=== PATIENT | male | born 1950 | race Asian ===

== ENCOUNTER 2022-01-11 20:01 | Emergency (ER) | payer OTHER ==
[~2022-01-11] VITALS: Ht 180.3 cm; Wt 83.5 kg
[2022-01-11 21:02] LABS: PLATELET COUNT 119 K/uL (142-355)
[2022-01-11 21:44] VITALS: BP 160/72; TEMP 98.2
[2022-01-12] MEDS ORDERED: B-121000 MC4 PO (09:58)
[2022-01-12] MEDS ORDERED: MELATONIN5 M2 PO (10:00)
[2022-01-12] MEDS ORDERED: MULTIVITAMI1 PO (10:01)
[2022-01-12] MEDS ORDERED: MOBIC15 MG PO (10:01)
[2022-01-12] MEDS ORDERED: AMLODIPINE BESYLATE PO (10:06)
[2022-01-12] MEDS ORDERED: REMERON SOLTAB15 MG PO (10:07)
[2022-01-12] MEDS ORDERED: TRAZ50TA36 PO (10:09)
[2022-01-12] MEDS ORDERED: VITAMIN D325 MCG PO (10:10)
[2022-01-12] MEDS ORDERED: QUET100T2 PO (10:11)
[2022-01-12] MEDS ORDERED: TRAMADOL HYDROC50 MG PO (10:12)
[2022-01-12] MEDS ORDERED: TIZA4TAB5 PO (10:13)
[2022-01-12] MEDS ORDERED: TRILEPTAL150 MG PO (10:13)
== END 2022-01-11 21:44 | disposition still patient (30) ==
LOC: ED 20:01
PROVIDERS: Emergency Medicine
DX: R46.89 Other symptoms and signs involving appearance and behavior (principal); I10 Essential (primary) hypertension; Z11.52 Encounter for screening for COVID-19; Z04.6 Encounter for general psychiatric examination, requested by authority
CPT/HCPCS: 36415; 80053; 85027; 87635; 93005; 99283; U0003

== ENCOUNTER 2022-06-25 15:46 | Emergency (ER) | payer OTHER ==
[~2022-06-25] VITALS: Ht 185.4 cm; Wt 80.3 kg
[~2022-06-25 15:46] MED LIST: ACET-206 PO; AMLODIPINE BESYLATE PO; B-121000 MC4 PO; CHOL100034 PO; LEVO0.0529 PO; LORA2INJ21 IM; MAGNSUS68 PO; MELATONIN5 M2 PO; MELOXICAM7.5 MG PO; MOBIC15 MG PO; MULTIVITAMI1 PO; MULTTAB52 PO; NORVASC 5MG TAB PO; OLANZAPINE5 MG PO; OXCARBAZEPIN150 MG PO; QUET100T2 PO; REMERON 15MG TAB PO; REMERON SOLTAB15 MG PO; TIZA4TAB5 PO; TRAMADOL HYDROC50 MG PO; TRAZ50TA36 PO; TRILEPTAL150 MG PO; VITAMIN B-121000 MCG PO; VITAMIN D325 MCG PO
[2022-06-25 16:20] LABS: PLATELET COUNT 139 K/uL (142-355)
[2022-06-25 17:47] VITALS: BP 130/60; TEMP 98.3
[2022-06-25] MEDS ORDERED: LEVO-T25 MCG PO (20:05)
[2022-06-25] MEDS ORDERED: ZYPREXA ZYDI10 MG PO (20:07)
[2022-06-25] MEDS ORDERED: HOUSE SUPPLEMENT PO (20:09)
== END 2022-06-25 17:47 | disposition still patient (30) ==
LOC: ED 15:46
PROVIDERS: Internal Medicine
DX: R45.1 Restlessness and agitation (principal)
CPT/HCPCS: 80053; 85027; 87635; 99283; U0003